=== PATIENT | female | born 1980 ===

== ENCOUNTER 2024-06-16 08:59 | Outpatient (CLI) | payer OTHER | END 2024-06-16 09:00 | disposition home or self-care (01) | LOC: CSHMAMMO 08:59 | PROVIDERS: ATTEND Student in an Organized Health Care Education/Training Program | DX: Z12.31 Encounter for screening mammogram for malignant neoplasm of breast (principal); Z91.89 Other specified personal risk factors, not elsewhere classified | CPT/HCPCS: 77063; 77067 ==